=== PATIENT | male | born 1940 | race Caucasian/White ===

== ENCOUNTER 2017-05-21 08:13 | Emergency (ER) | payer MEDICARE ==
[2017-05-21] MEDS ORDERED: Sodium Chloride 0.9% 10 ML Syringe FLUSH PRN (08:29)
[2017-05-21] MEDS ORDERED: Sodium Chloride 0.9% 1,000 ML IV ONE (08:30)
--- NOTE | 2017-05-21 08:40 | EDM.PDOC ---
ED HPI GENERAL MEDICAL PROBLEM - General Chief Complaint: General Stated Complaint: SOB; wheezing; weakness; fall Time Seen by Provider: 05/21/17 08:22 Source of Information: Reports: Patient, EMS, EMS Notes Reviewed, RN, RN Notes Reviewed History Limitations: Reports: No Limitations - History of Present Illness INITIAL COMMENTS - FREE TEXT/NARRATIVE: Patient is brought to the ED at [facility] via EMS for generalized weakness and fall. EMS states patient was found laying on the floor in his camper between a chair and the cough. According to patient he fell in his camper last evening. He does not remember how he fell, but does remember the fall. 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 He thinks he may have lost his balance, but is not sure. He denies any pain at this time. Upon arrival, patient is significant short of breath. He states he usually has nebs 4 times a day, but has not had any for the past couple of days. He also has not taken any of his insulin. Patient states he has a history of CHF and Type I Diabetes. His regular provider is at the [facility] in [place], [place]. He denies any cough. No chest pain. He states he normally has no trouble with ambulation, but was unable to care for himself this AM due to weakness. No focal neurological complaints. Patient denies any N/V/D. 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: See EMS Report - Related Data Allergies Allergy/AdvReac Type Severity Reaction Status Date / Time ceftriaxone [From Rocephin] Allergy Cannot Verified 05/21/17 10:24 Remember lovastatin Allergy Cannot Verified 05/21/17 10:24 Remember niacin Allergy Cannot Verified 05/21/17 10:24 Remember simvastatin Allergy Cannot Verified 05/21/17 10:24 Remember Sulfa (Sulfonamide Allergy Cannot Verified 05/21/17 10:24 Antibiotics) Remember Home Meds: Home Meds Acetaminophen 1 - 2 tab PO TID PRN 05/21/17 [History] Albuterol Sulfate [Proair Hfa] 2 puff QID PRN 05/21/17 [History] Alendronate [Fosamax] 70 mg PO WE 05/21/17 [History] Allopurinol [Zyloprim] 100 mg PO DAILY 05/21/17 [History] Budesonide/Formoterol [Symbicort 160-4.5 MCG] 1 puff PO BID 05/21/17 [History] Calcitriol 0.5 mcg PO DAILY 05/21/17 [History] Cholecalciferol (Vitamin D3) [Vitamin D3] 3,000 units PO DAILY 05/21/17 [History ] Citalopram Hydrobromide [Celexa] 20 mg PO DAILY 05/21/17 [History] Docusate Sodium/Sennosides [Senna Plus] 1 tab PO DAILY PRN 05/21/17 [History] Doxycycline [Vibramycin] 100 mg PO BID 05/21/17 [History] Ferrous Sulfate 325 mg PO BID 05/21/17 [History] Finasteride 5 mg PO DAILY 05/21/17 [History] Folic Acid 1 mg PO DAILY 05/21/17 [History] Furosemide 40 mg PO DAILY 05/21/17 [History] Hydrocortisone Acetate [Hydrocortisone] 1 applic TOP ASDIRECTED PRN 05/21/17 [ History] Insulin Glargine,Hum.Rec.Anlog [Lantus Solostar] 30 units SUBCUT DAILY 05/21/17 [History] Ipratropium/Albuterol Sulfate [Iprat-Albut 0.5-3(2.5) MG/3 ML] 3 ml NEB QID 08/28 [History] Loratadine 10 mg PO DAILY 05/21/17 [History] Metoprolol Succinate [Toprol XL] 25 mg PO DAILY 05/21/17 [History] Miconazole 1 applic TOP BID 05/21/17 [History] Mineral Oil/Petrolatum,White [Hydrocerin Crm] 1 applic TOP ASDIRECTED PRN [History] Omeprazole 40 mg PO DAILY 05/21/17 [History] Tamsulosin [Flomax] 0.4 mg PO BID 05/21/17 [History] Tiotropium [Spiriva HandiHaler] 1 inh PO DAILY 05/21/17 [History] Vits A and D/White Pet/Lanolin [A and D Ointment] 1 applic TOP ASDIRECTED PRN [History] Warfarin [Coumadin] 1.25 mg PO SUTUWETHSA 05/21/17 [History] Warfarin [Coumadin] 2.5 mg PO MOFR 05/21/17 [History] atorvaSTATin [Lipitor] 20 mg PO BEDTIME 05/21/17 [History] traMADol [Ultram] 50 mg PO BID 05/21/17 [History] Social & Family History - Family History Family Medical History: Noncontributory - Tobacco Use Smoking Status *Q: Former Smoker Tobacco Use Within Last Twelve Months: No Used Tobacco, but Quit: Yes Smoking Cessation Information Provided To Patient: Patient Refused - Tobacco Core Measures Tobacco Use/Smoking Within Last 30 Days: Refused Screening - Alcohol Use Alcohol Use History: No Alcohol Use in Last Twelve Months: No - Recreational Drug Use Recreational Drug Use: No Drug Use in Last 12 Months: No - Living Situation & Occupation Living situation: Reports: Occupation: Retired ED ROS GENERAL - Review of Systems Review Of Systems: See Below Constitutional: Reports: Weakness. Denies: Fever, Chills Respiratory: Reports: Shortness of Breath, Wheezing. Denies: Cough Cardiovascular: Reports: Dyspnea on Exertion, Orthopnea. Denies: Chest Pain, Palpitations GI/Abdominal: Denies: Abdominal Pain, Nausea, Vomiting Musculoskeletal: Reports: No Symptoms Skin: Reports: Bruising (chronic) Neurological: Reports: Dizziness. Denies: Headache, Numbness, Paresthesia, Tingling ED EXAM, GENERAL - Physical Exam Exam: See Below Exam Limited By: No Limitations General Appearance: Alert, WD/WN, Mild Distress, Obese Head: Atraumatic, Normocephalic Neck: Supple Respiratory/Chest: Decreased Breath Sounds, Crackles, Wheezing, Prolonged Expiration Cardiovascular: Regular Rate, Rhythm Peripheral Pulses: 2+: Radial (L), Radial (R) GI/Abdominal: Soft, Non-Tender, Abnormal Bowel Sounds (hypoactive) Extremities: Normal Inspection Neurological: Alert, Oriented Skin Exam: Warm, Dry, Normal Color, No Rash, Ecchymosis (bilateral arm; chronic) EKG INTERPRETATION EKG Date: 05/21/17 Time: 08:41 Rhythm: A-Fib Rate (Beats/Min): 89 [place]: Other (Indeterminate) P-Wave: Absent QRS: RBBB ST-T: Normal QT: Normal ME/PQ Interval: Absent Comparison: NA - No Prior EKG EKG Interpretation Comments: 1. Atrial Fibrillation Indeterminate Moreland RBBB Course - Vital Signs Last Recorded V/S: Last Vital Signs Temp 35.8 C 05/21/17 08:13 Pulse 85 05/21/17 10:30 Resp 20 05/21/17 10:30 BP 170/92 H 05/21/17 10:30 Pulse Ox 95 05/21/17 10:30 - Orders/Labs/Meds Orders: Active Orders 24 hr Category Date Time Status EKG 12 Lead [EKG Documentation Completion] [RC] STAT Care 05/21/17 08:29 Active RT Post Treatment Assessment [RC] Click To Edit Care 05/21/17 09:07 Active RT Pre-Treatment Assessment [RC] Click To Edit Care 05/21/17 09:07 Active Chest wo Cont [CT] Stat Exams 05/21/17 09:19 Taken Head wo Cont [CT] Stat Exams 05/21/17 09:18 Taken Sodium Chloride 0.9% [Normal Saline] 1,000 ml Med 05/21/17 08:30 Active IV ONETIME Sodium Chloride 0.9% [Saline Flush] Med 05/21/17 08:29 Active 10 ml FLUSH ASDIRECTED PRN Peripheral IV Insertion Adult [OM.PC] Routine Oth 05/21/17 08:29 Ordered Medication Orders Sodium Chloride (Normal Saline) 1,000 mls @ 30 mls/hr IV ONETIME ONE Stop: 05/22/17 17:49 Last Admin: 05/21/17 08:53 Dose: 30 mls/hr Sodium Chloride (Saline Flush) 10 ml FLUSH ASDIRECTED PRN PRN Reason: Keep Vein Open Labs: Laboratory Tests 05/21/17 05/21/17 05/21/17 Range/Units 08:52 08:52 08:52 WBC 9.6 (4.0-10.0) x10^3/uL RBC 3.85 L (4.5-6.0) x10^6/uL Hgb 11.3 L (14.0-18.0) g/dL Hct 34.9 L (40.0-52.0) % MCV 90.6 (78.0-93.0) fL MCH 29.4 (26.0-32.0) pg MCHC 32.4 (32.0-36.0) g/dL RDW Coeff of [place] 14.6 (10.0-15.0) % Plt Count 170 (130-400) x10^3/uL Neut % (Auto) 81.4 H (50.0-80.0) % Lymph % (Auto) 9.4 L (25.0-50.0) % [place] % (Auto) 6.7 (2.0-11.0) % Eos % (Auto) 2.3 (0.0-4.0) % Baso % (Auto) 0.2 (0.2-1.2) % PT (10.0-12.8) SEC INR (2.0-3.5) POC ABG pH (7.35-7.45) POC ABG pCO2 (35-45) mmHG POC ABG pO2 (80-105) mmHG POC ABG HCO3 (22-26) mmol/L POC ABG Total CO2 (23-27) mmol/L POC ABG O2 Sat (95-98) % POC ABG Base Excess (-2-3) mmol/L POC FiO2 Sodium 142 (136-145) mmol/L Potassium 4.5 (3.5-5.1) mmol/L Chloride 105 (98-107) mmol/L Carbon Dioxide 32 (21-32) mmol/L BUN 33 H (7-18) mg/dL Creatinine 2.6 H (0.70-1.30) mg/dL Est Cr Clr Drug Dosing 25.70 mL/min Estimated GFR (MDRD) 24 Glucose 202 H (74-106) mg/dL Lactic Acid 1.7 (0.4-2.0) mmol/L Calcium 9.2 (8.5-10.1) mg/dL Corrected Calcium 10.08 (8.5-10.1) mg/dL Total Bilirubin 0.4 (0.2-1.0) mg/dL AST 25 (15-37) U/L ALT 15 L (16-63) U/L Alkaline Phosphatase 92 (46-116) U/L Creatine Kinase 393 H* (39-308) U/L Creatine Kinase Index 1.2 (0.0-4.0) % CK-MB (CK-2) 4.9 H (0.0-3.6) ng/mL Troponin I 0.065 H* (<=0.056) ng/mL C-Reactive Protein 4.4 H (<=0.9) mg/dL B-Natriuretic Peptide 5829 H (<=450) pg/mL Total Protein 7.0 (6.4-8.2) g/dL Albumin 2.9 L (3.4-5.0) g/dL Globulin 4.1 Albumin/Globulin Ratio 0.71 Urine Color (YELLOW) Urine Appearance (CLEAR) Urine pH (5.0-8.0) Ur Specific [place] Urine Protein (NEGATIVE) mg/dL Urine Glucose (UA) (NEGATIVE) mg/dL Urine Ketones (NEGATIVE) mg/dL Urine Occult Blood (NEGATIVE) Urine Nitrite (NEGATIVE) Urine Bilirubin (NEGATIVE) Urine Urobilinogen (0.2) EU/dL Ur Leukocyte Esterase (NEGATIVE) Urine RBC (NOT SEEN) /HPF Urine WBC (NOT SEEN) /HPF Ur Squamous Epith Cells (NEGATIVE) /HPF Urine Bacteria (NEGATIVE) /HPF Urine Mucus (NEGATIVE) /LPF 05/21/17 05/21/17 05/21/17 Range/Units 08:52 09:03 11:47 WBC (4.0-10.0) x10^3/uL RBC (4.5-6.0) x10^6/uL Hgb (14.0-18.0) g/dL Hct (40.0-52.0) % MCV (78.0-93.0) fL MCH (26.0-32.0) pg MCHC (32.0-36.0) g/dL RDW Coeff of [place] (10.0-15.0) % Plt Count (130-400) x10^3/uL Neut % (Auto) (50.0-80.0) % Lymph % (Auto) (25.0-50.0) % [place] % (Auto) (2.0-11.0) % Eos % (Auto) (0.0-4.0) % Baso % (Auto) (0.2-1.2) % PT 23.8 H (10.0-12.8) SEC INR 2.1 (2.0-3.5) POC ABG pH 7.438 (7.35-7.45) POC ABG pCO2 40 (35-45) mmHG POC ABG pO2 71 L (80-105) mmHG POC ABG HCO3 27 H (22-26) mmol/L POC ABG Total CO2 28 H (23-27) mmol/L POC ABG O2 Sat 95 (95-98) % POC ABG Base Excess 3 (-2-3) mmol/L POC FiO2 0.21 Sodium (136-145) mmol/L Potassium (3.5-5.1) mmol/L Chloride (98-107) mmol/L Carbon Dioxide (21-32) mmol/L BUN (7-18) mg/dL Creatinine (0.70-1.30) mg/dL Est Cr Clr Drug Dosing mL/min Estimated GFR (MDRD) Glucose (74-106) mg/dL Lactic Acid (0.4-2.0) mmol/L Calcium (8.5-10.1) mg/dL Corrected Calcium (8.5-10.1) mg/dL Total Bilirubin (0.2-1.0) mg/dL AST (15-37) U/L ALT (16-63) U/L Alkaline Phosphatase (46-116) U/L Creatine Kinase (39-308) U/L Creatine Kinase Index (0.0-4.0) % CK-MB (CK-2) (0.0-3.6) ng/mL Troponin I (<=0.056) ng/mL C-Reactive Protein (<=0.9) mg/dL B-Natriuretic Peptide (<=450) pg/mL Total Protein (6.4-8.2) g/dL Albumin (3.4-5.0) g/dL Globulin Albumin/Globulin Ratio Urine Color Yellow (YELLOW) Urine Appearance Clear (CLEAR) Urine pH 7.0 (5.0-8.0) Ur Specific [place] 1.020 Urine Protein >=300 H (NEGATIVE) mg/dL Urine Glucose (UA) 100 H (NEGATIVE) mg/dL Urine Ketones Negative (NEGATIVE) mg/dL Urine Occult Blood Moderate H (NEGATIVE) Urine Nitrite Negative (NEGATIVE) Urine Bilirubin Negative (NEGATIVE) Urine Urobilinogen 0.2 (0.2) EU/dL Ur Leukocyte Esterase Negative (NEGATIVE) Urine RBC 5-10 H (NOT SEEN) /HPF Urine WBC 5-10 H (NOT SEEN) /HPF Ur Squamous Epith Cells Few H (NEGATIVE) /HPF Urine Bacteria Few H (NEGATIVE) /HPF Urine Mucus Rare H (NEGATIVE) /LPF Meds: Medications Generic Name Dose Route Start Last Admin Trade Name Freq PRN Reason Stop Dose Admin Sodium Chloride 1,000 mls @ 30 mls/hr 05/21/17 08:30 05/21/17 08:53 Normal Saline IV 05/22/17 17:49 30 mls/hr ONETIME ONE Administration Sodium Chloride 10 ml 05/21/17 08:29 Saline Flush FLUSH ASDIRECTED PRN Keep Vein Open Discontinued Medications Generic Name Dose Route Start Last Admin Trade Name Henny PRN Reason Stop Dose Admin Levalbuterol HCl 1.25 mg 05/21/17 09:07 05/21/17 09:54 Xopenex NEB 05/21/17 09:08 1.25 mg ONETIME ONE Administration - Radiology Interpretation Free Text/Narrative:: CT Head: No plain CT evidence of acute intracranial process CT Chest: Probable COPD; No pneumonia; No pleural fluid collection; No edema; Atheromatous changes; Cholecystolithiasis See scanned reports in EMR CT Results Date: 05/21/17 CT Results Time: 10:15 Departure - Departure Time of Disposition: 12:25 Disposition: DC/Tfer to Acute Hospital 02 Condition: Good Clinical Impression: COPD with acute exacerbation, Elevated troponin Fall Qualifiers: Encounter type: initial encounter Qualified Code(s): W19.XXXA - Unspecified fall, initial encounter Rhabdomyolysis Qualifiers: Rhabdomyolysis type: traumatic Encounter type: initial encounter Qualified Code (s): T79.6XXA - Traumatic ischemia of muscle, initial encounter Acute on chronic congestive heart failure Qualifiers: Congestive heart failure type: unspecified congestive heart failure type Qualified Code(s): I50.9 - Heart failure, unspecified - Discharge Information Forms: Interfacility Transfer [facility] ED Communication - ED Communication Date/Time Date: 05/21/17 Time Called: 12:18 - Discussed Case With (1) Discussed Case With (1): Admitting Provider (Dr. Mcgarry) - Conversation Summary Admitting Provider Agreed to Patient's Admission: Yes Patient Aware of Amendments fo Care Plan: Yes Summary Comment: Dr. Mcgarry accepted patient in transfer. Full report given. Patient transferred via ALS ground to [facility]. - Problem List Review Problem List Initiated/Reviewed/Updated: Yes - My Orders Last 24 Hours: My Active Orders 05/21/17 08:29 EKG 12 Lead [EKG Documentation Completion] [RC] STAT Sodium Chloride 0.9% [Saline Flush] 10 ml FLUSH ASDIRECTED PRN Peripheral IV Insertion Adult [OM.PC] Routine 05/21/17 08:30 Sodium Chloride 0.9% [Normal Saline] 1,000 ml IV ONETIME 05/21/17 09:07 RT Post Treatment Assessment [RC] Click To Edit RT Pre-Treatment Assessment [RC] Click To Edit 05/21/17 09:18 Head wo Cont [CT] Stat 05/21/17 09:19 Chest wo Cont [CT] Stat - Assessment/Plan Last 24 Hours: My Active Orders 05/21/17 08:29 EKG 12 Lead [EKG Documentation Completion] [RC] STAT Sodium Chloride 0.9% [Saline Flush] 10 ml FLUSH ASDIRECTED PRN Peripheral IV Insertion Adult [OM.PC] Routine 05/21/17 08:30 Sodium Chloride 0.9% [Normal Saline] 1,000 ml IV ONETIME 05/21/17 09:07 RT Post Treatment Assessment [RC] Click To Edit RT Pre-Treatment Assessment [RC] Click To Edit 05/21/17 09:18 Head wo Cont [CT] Stat 05/21/17 09:19 Chest wo Cont [CT] Stat Plan: Contacted the [facility] in [place] to see if they would accept the patient. Due to technical difficulties with communications, transfer was delayed well over an hour. Once able to visit with admissions at the [facility], no beds were available. Call placed to [facility]. Patient accepted in transfer by Dr. Mcgarry, Hospitalist. Full report given. All questions answered. Patient will be transferred ALS via ground ambulance. Patient agrees with transfer and wishes to proceed.
[2017-05-21] MEDS ORDERED: Levalbuterol HCl 1.25 MG/0.5 ML Neb NEB ONE (09:07)
[2017-05-21 11:52] VITALS: BP 170/92
== END 2017-05-21 13:20 | disposition short-term general hospital (02) ==
LOC: VM.ED 08:13
DX: T79.6XXA Traumatic ischemia of muscle, initial encounter (principal); J44.1 Chronic obstructive pulmonary disease with (acute) exacerbation; I50.9 Heart failure, unspecified; R79.89 Other specified abnormal findings of blood chemistry; E10.9 Type 1 diabetes mellitus without complications; Z88.1 Allergy status to other antibiotic agents; Z88.2 Allergy status to sulfonamides; Z79.899 Other long term (current) drug therapy; Z79.01 Long term (current) use of anticoagulants; Z87.891 Personal history of nicotine dependence; W19.XXXA Unspecified fall, initial encounter
CPT/HCPCS: 36415; 36600; 70450; 71250; 80053; 81001; 82550; 82553; 82803; 83605; 83880; 84484; 85025; 85610; 86140; 93005; 94640; 96360; 96361; 99285; J7030